=== PATIENT | female | born 1960 | race Native Hawaiian/Other Pacific Islander ===

== ENCOUNTER 2019-10-26 09:51 | Day surgery (SDC) | payer OTHER ==
[~2019-10-26] VITALS: Ht 165.1 cm; Wt 83.1 kg
[~2019-10-26 09:51] MED LIST: ATOR40TA; Cipro250 MG PO; FERR325 PO; LISHYD2025 PO; METO25ER PO; PROAIR RESPICL90 MCG; Papaya1 EAC1
--- NOTE | 2019-10-26 13:48 | NUR ---
10/26/19 1348 April Avery LATE ENTRY-----DURING PROCEDURE PATIENT HAD 3 DIFFERENT EPISODES OF O2 DESATURATION AND AIRWAY OBSTRUCTION. THIS REQUIRED JAW THRUST EACH TIME. AFTER FIRST EPISODE I PLACED #9 OPA AND PATIENT WAS OK FOR A FEW MINUTES THAN STARTED TO COUGH, SUCTIONED MUCUOUS, COPIOUS AMOUNTS OF CLEAR FLUID . ZOFRAN WAS GIVEN PER MD IN ORDER TO KEEP HER FROM VOMITING AND ROBINAL WAS GIVEN TO HELP DRY UP SECRETIONS. DR BENSON CAME IN AND ASSESSED THE SITUATION. CONTINUED JAW THRUST WAS NEEDED AND SWITCHED FROM NASAL CANNULA TO NON REBREATHER WITH O2 @ 10L. AFTER PROCEDURE WAS FINISHED PATIENT WAS ALLOWED TO WAKE UP BEFORE I TOOK THE NONREBREATHER MASK OFF. SHE WAS THEN ON ROOM AIR FOR ABOUT 5 MINUTES AND SHE WAS ABLE TO MAINTAIN O2 SATURATION OF 97%. I DISCUSSED THIS WITH DR JOHNSTON AND ADVISED THAT THIS PATIENT BE REFERRED TO PCP TO DISCUSS TESTING FOR JAYLIN. PATIENT STABLE UPON MOVING TO STEPDOWN
== END 2019-10-26 12:25 | disposition home or self-care (01) ==
LOC: ORSCSDS 09:51
PROVIDERS: Surgery
PROC: 0DBN8ZX Excision of Sigmoid Colon, Via Natural or Artificial Opening Endoscopic, Diagnostic (ICD-10-PCS; principal; 2019-10-26 11:00)
DX: K62.5 Hemorrhage of anus and rectum (principal); R10.32 Left lower quadrant pain; Z86.010 Personal history of colon polyps; D12.5 Benign neoplasm of sigmoid colon; I10 Essential (primary) hypertension; Z87.891 Personal history of nicotine dependence; Z79.899 Other long term (current) drug therapy
CPT/HCPCS: J2405; J2704; J7120

== ENCOUNTER → 2020-01-04 | Outpatient (CLI) | payer OTHER ==
[2020-01-04 09:52] LABS: Source, Urine Voided
[2020-01-04 13:32] LABS: Bilirubin, Urine Neg (Neg); Blood, Urine Neg (Neg); Glucose Qualitative, Urine Neg (Neg); Ketones, Urine Neg (Neg); Leukocyte Esterase, Urine Neg (Neg); Nitrite, Urine Pos (Neg); Protein, Urine Neg (Neg); Specific Gravity, Urine 1.015 (1.003-1.022); Urobilinogen, Urine NORM (Normal); pH, Urine 6.5 (5.0-8.0)
[2020-01-04 13:55] LABS: Appearance, Urine Clear (Clear); Color, Urine Pale Yellow (P-Yellow)
[2020-01-04 13:56] LABS: Bacteria Many /hpf; Red Blood Cells, Urine 0-2 /hpf (0-2); Squamous Epithelial Cells Few /hpf (Few)
[2020-01-04 14:25] LABS: Microalb/Creat Ratio UR, Rand 16.887 mg/g (0.000-30.000); Microalbumin, Random Urine 17.9 mg/L (0.000-20.000)
== END | disposition home or self-care (01) ==
LOC: LAB 09:00 → LAB SHORT 09:00 → LAB FUT 12-31 15:00 → EDSTATUS 12-31 15:00
PROVIDERS: Student in an Organized Health Care Education/Training Program
DX: N18.3 Chronic kidney disease, stage 3 (moderate) (principal)
CPT/HCPCS: 81001; 82043; 82570; 87077; 87086; 87186

== ENCOUNTER 2020-11-21 21:37 | Emergency (ER) | payer OTHER ==
[~2020-11-21] VITALS: Ht 165.1 cm; Wt 83.9 kg
[2020-11-22] MEDS ORDERED: PRED20 PO (00:43)
[2020-11-22] MEDS ORDERED: AMOCLA875 PO (00:43)
[2020-11-22] MEDS ORDERED: TRAM50 PO (00:43)
== END 2020-11-22 01:02 | disposition home or self-care (01) ==
LOC: ER 21:37
DX: K08.89 Other specified disorders of teeth and supporting structures (principal); I10 Essential (primary) hypertension; F17.200 Nicotine dependence, unspecified, uncomplicated; Z79.899 Other long term (current) drug therapy
CPT/HCPCS: 99282; A9270

== ENCOUNTER → 2021-04-25 | Outpatient (CLI) | payer OTHER ==
[~2021-04-25] MED LIST changes: +AMOCLA875 PO; +PRED20 PO; +TRAM50 PO
[2021-04-30 15:11] LABS: COTININE Negative ng/mL (Cutoff=300)
== END | disposition home or self-care (01) ==
LOC: LAB SHORT 10:40 → LAB 10:40
PROVIDERS: Internal Medicine Cardiovascular Disease
DX: I25.10 Atherosclerotic heart disease of native coronary artery without angina pectoris (principal); I10 Essential (primary) hypertension; Z72.0 Tobacco use

== ENCOUNTER 2021-06-03 06:08 | Inpatient (IN) | payer OTHER ==
[~2021-06-03] VITALS: Ht 165.1 cm; Wt 90.3 kg
[~2021-06-03 06:08] MED LIST changes: -LISHYD2025 PO; +ZESTORETIC 20-1 EAC3 PO
--- NOTE | 2021-06-03 15:19 | NUR ---
PT BROUGHT TO PCU ROOM. REPORT OF PROCEDURE REVIEWED WITH ALTAF RN PCU. TR BAND HAS BEEN FULLY DEFLATED FOR 40 MINUTES. R RADIAL SITE STABLE. MO FURTHER QUESTIONS.
--- NOTE | 2021-06-03 17:54 | NUR ---
PT ARRIVED IN THE UNIT VIA WHEELCHAIR [facility] POST [facility] WITH RIGHT RADIAL SITE TR BAND IN PLACE FULLY DEFLATED. SITE INTACT NO HEMATOMA NOTED AROUND THE SITE. PT HAD 3 STENTS PLACED TODAY 2 IN THE CIRC AND 1 IN THE OM. PT ALERT AND ORIENTED, CAN BE INDEPENDENT IN THE ROOM. VITALS SR 70'S, BP SYSTOLIC 140'S, SATS ABOVE 95% ON RA, AFEBRILE. PT DENIES CEHST PAIN OR ANY PAIN, TO DISCHARGE IN AM IF STABLE. PT IN BED RESTING AT THIS TIME. NO OTHER ISSUES AT THIS TIME WILL REPORT TO ONCOMING SHIFT
[2021-06-04 06:11] LABS: BASOPHILS ABSOLUTE AUTO 0.03 K/mm3 (0.00-0.23); BASOPHILS PERCENT AUTO 0 % (0-2); EOSINOPHILS ABSOLUTE AUTO 0.24 K/mm3 (0.00-0.68); EOSINOPHILS PERCENT AUTO 4 % (0-6); Hematocrit 41.8 % (33.0-51.0); IMMATURE GRAN ABSOLUTE AUTO 0.02 K/mm3 (0.00-0.10); IMMATURE GRAN PERCENT AUTO 0 % (0-1); LYMPHOCYTES ABSOLUTE AUTO 2.11 K/mm3 (0.84-5.20); LYMPHOCYTES PERCENT AUTO 31 % (21-46); MONOCYTES ABSOLUTE AUTO 0.49 K/mm3 (0.16-1.47); MONOCYTES PERCENT AUTO 7 % (4-13); Mean Corpuscular HGB Conc 33.5 g/dL (31.5-36.5); Mean Corpuscular Volume 95 fL (80-100); Mean Platelet Volume 10.2 fL (9.1-12.4); NEUTROPHILS ABSOLUTE AUTO 3.97 K/mm3 (1.96-9.15); NEUTROPHILS PERCENT AUTO 58 % (41-73); Platelet Count 207 K/mm3 (150-400); RDW Coefficient Variation 13.1 % (11.7-14.2); RDW Standard Deviation 45.6 fL (35.1-46.3); Red Blood Cell Count 4.38 M/mm3 (3.80-5.20); White Blood Cell Count 6.86 K/mm3 (4.00-11.30)
[2021-06-04 06:27] LABS: Bun/Creatinine Ratio 18.1 (12.0-20.0); Calcium, Blood 8.9 mg/dL (8.5-10.1); Creatinine, Blood 1.16 mg/dL (0.40-1.00); Potassium, Blood 3.8 mmol/L (3.5-5.5)
--- NOTE | 2021-06-04 06:32 | NUR ---
SHIFT SUMMARY PATIENT A&0X4 AND COMPLIANT WITH CARE. VSS. NO CP OR DISTRESS UPON ASSESSMENT. RIGHT RADIAL SITE C/D/I WITH NO SIGNS OF BLEEDING OR HEMATOMA. ARMBOARD IN PLACE. TOLERATING DIET WITHOUT ISSUE. VOIDING WELL IN BATHROOM IND. NO ACUTE CONCERNS AT THIS TIME. WILL CONTINUE TO MONITOR UNTIL REPROT GIVEN TO DAYSHIFT RN.
[2021-06-04] MEDS ORDERED: Aspir 8181 MG PO (09:49)
[2021-06-04] MEDS ORDERED: CLOP75 PO (09:50)
--- NOTE | 2021-06-04 10:44 | NUR ---
PT DISCHARGED TO HOME WITH DISCHARGE ORDERS, DISCHARGE INSTRUCTIONS AND MEDICATIONS DISCLOSED WITH THE PT, PT VERBALIZED UNDERSTANDING. RADIAL SITE CDI WITH TRANSPARENT DRESSING, SITE CARE INSTRUCTION PROVIDED. VITALS HAS BEEN STABLE THROUGHOUT THE NIGHT, PT STARTED ON PLAVIX AND ASPIRIN. DENIES ANY CHEST PAIN/PRESSURE. ACCOMPANIED VIA WHEELCHAIR FOR TRANSPORT, ALL BELONGINGS SENT WITH THE PT.
== END 2021-06-04 10:39 | disposition home or self-care (01) | DRG 247 ==
LOC: MHTC 06:08 → PCU 10:37 → MHTC 10:37 → PCU 15:16
PROVIDERS: Internal Medicine Cardiovascular Disease; ADMIT Internal Medicine Cardiovascular Disease
PROC: B2111ZZ Fluoroscopy of Multiple Coronary Arteries using Low Osmolar Contrast (ICD-10-PCS; principal; 2021-06-03)
PROC: 027136Z Dilation of Coronary Artery, Two Arteries with Three Drug-eluting Intraluminal Devices, Percutaneous Approach (ICD-10-PCS; 2021-06-03)
DX: I25.10 Atherosclerotic heart disease of native coronary artery without angina pectoris (principal); I10 Essential (primary) hypertension; F17.200 Nicotine dependence, unspecified, uncomplicated; E78.5 Hyperlipidemia, unspecified; G47.30 Sleep apnea, unspecified; Z98.890 Other specified postprocedural states; Z79.899 Other long term (current) drug therapy
CPT/HCPCS: 36415; 76937; 80048; 85025; 85347; 93454; 94762; 99152; 99153; A9270; C1725; C1769; C1874; C1887; C1894; C9600; C9601; J1644; J2250; J2370; J3010; J7030; J7050; Q9967

== ENCOUNTER 2021-07-24 07:48 | Day surgery (SDC) | payer OTHER ==
[~2021-07-24] VITALS: Ht 165.1 cm; Wt 92.7 kg
[~2021-07-24 07:48] MED LIST changes: -ATOR40TA; +ATOR40TA PO; +Aspir 8181 MG PO; +CLOP75 PO
[2021-07-24] MEDS ORDERED: HYDCHL25 PO (08:11)
[2021-07-24] MEDS ORDERED: LISI20 PO (08:11)
[2021-07-24] MEDS ORDERED: THERA-D2000 UNIT PO (08:12)
[2021-07-24] MEDS ORDERED: Neurontin 100100 MG PO (08:14)
--- NOTE | 2021-07-24 12:42 | NUR ---
TR BAND DEFLATION STARTED ON RIGHT WRIST. ARM BOARD REMAINS ON FOR SUPPORT. PT PROVIDED WITH LUNCH TRAY , TOLERATES WITH NO DIFFICULTIES.
--- NOTE | 2021-07-24 12:57 | NUR ---
TR BAND FULLY DEFLATED, SITE APPEARS SOFT NON TENDER, NO BLEEDING. WILL CONTINUE TO MONITOR. DISCHARGE INSTRUCTIONS REVIEWED, VERBAL UNDERSTANDING.
--- NOTE | 2021-07-24 13:16 | NUR ---
PT AMBULATES TO RESTROOM WITH SLOW STEADY GAIT. ARRIVES TO BEDSIDE FOR RIDE HOME, PAPERWORK PROVIDED IN FOLDER WITH DISCHARGE INSTRUCTIONS. TR BAND REMOVED FROM RIGHT WRIST, RED CLOTH DOT DRESSING APPLIED. ARM BOARD AND SLING PLACED TO RIGHT ARM FOR SUPPORT. IV REMOVED FROM LAC WITH CATH INTACT, PRESSURE DRESSING APPLIED. PT GETS DRESSED WITH ASSISTANCE FROM . NO DISTRESS NOTED AT TIME OF DISPO. ENCOURAGED TO FOLLOW UP SCHEDULED WITH PROVIDER.
== END 2021-07-24 13:15 | disposition home or self-care (01) ==
LOC: MHTC 07:48
DX: I25.10 Atherosclerotic heart disease of native coronary artery without angina pectoris (principal); I10 Essential (primary) hypertension; E78.5 Hyperlipidemia, unspecified; G47.30 Sleep apnea, unspecified; E66.01 Morbid (severe) obesity due to excess calories; Z68.33 Body mass index [BMI] 33.0-33.9, adult; Z85.41 Personal history of malignant neoplasm of cervix uteri; Z95.5 Presence of coronary angioplasty implant and graft
CPT/HCPCS: 76937; 85347; 93454; 93571; 99152; 99153; C1769; C1887; C1894; J1644; J2250; J3010; J7030; J7050; Q9967

== ENCOUNTER → 2023-01-09 | Outpatient (CLI) | payer OTHER ==
[~2023-01-09] MED LIST changes: +HYDCHL25 PO; +LISI20 PO; +Neurontin 100100 MG PO; +THERA-D2000 UNIT PO
[2023-01-09 12:52] LABS: BASOPHILS ABSOLUTE AUTO 0.06 K/mm3 (0.00-0.23); BASOPHILS PERCENT AUTO 0 % (0-2); EOSINOPHILS ABSOLUTE AUTO 0.14 K/mm3 (0.00-0.68); EOSINOPHILS PERCENT AUTO 1 % (0-6); Hematocrit 52.2 % (33.0-51.0); Hemoglobin 18.4 g/dL (11.5-16.0); IMMATURE GRAN ABSOLUTE AUTO 0.04 K/mm3 (0.00-0.10); IMMATURE GRAN PERCENT AUTO 0 % (0-1); LYMPHOCYTES ABSOLUTE AUTO 3.16 K/mm3 (0.84-5.20); LYMPHOCYTES PERCENT AUTO 23 % (21-46); MONOCYTES ABSOLUTE AUTO 1.12 K/mm3 (0.16-1.47); MONOCYTES PERCENT AUTO 8 % (4-13); Mean Corpuscular HGB 31.9 pg (26.0-34.0); Mean Corpuscular HGB Conc 35.2 g/dL (31.5-36.5); Mean Corpuscular Volume 91 fL (80-100); Mean Platelet Volume 11.1 fL (9.1-12.4); NEUTROPHILS ABSOLUTE AUTO 8.96 K/mm3 (1.96-9.15); NEUTROPHILS PERCENT AUTO 67 % (41-73); Platelet Count 263 K/mm3 (150-400); RDW Coefficient Variation 13.5 % (11.7-14.2); Red Blood Cell Count 5.77 M/mm3 (3.80-5.20); White Blood Cell Count 13.48 K/mm3 (4.00-11.30)
[2023-01-09 13:03] LABS: Albumin, Blood 4.7 g/dL (3.4-5.0); Albumin/Globulin Ratio 1.3 (0.8-1.8); Bun/Creatinine Ratio 15.5 (12.0-20.0); Creatinine, Blood 2.07 mg/dL (0.40-1.00); Globulin, Blood 3.6 g/dL (2.2-4.0); Potassium, Blood 3.5 mmol/L (3.5-5.5); Total Protein, Blood 8.3 g/dL (6.4-8.2)
== END | disposition home or self-care (01) ==
LOC: LAB SHORT 12:48
PROVIDERS: Physician Assistant Medical
DX: R53.83 Other fatigue (principal)
CPT/HCPCS: 80053; 83690; 85025

== ENCOUNTER 2024-10-19 06:35 | Day surgery (SDC) | payer OTHER ==
[~2024-10-19] VITALS: Ht 165.1 cm; Wt 99.8 kg
[2024-10-19] MEDS ORDERED: AMLO5 (07:01)
[2024-10-19] MEDS ORDERED: [UNRECOGNIZED DRUG - OTHER] (07:02)
[2024-10-19] MEDS ORDERED: ASPI81CH (07:02)
[2024-10-19] MEDS ORDERED: LYRICA200 M1 (07:03)
[2024-10-19] MEDS ORDERED: MONT10T (07:03)
[2024-10-19] MEDS ORDERED: K-Dur20 MEQ (07:03)
[2024-10-19] MEDS ORDERED: Lactated Ringer's 1,000 ML IV ONE ×2 (07:34→07:46)
[2024-10-19] MEDS ORDERED: propofoL 50 ML IV ONE (07:37)
[2024-10-19 09:11] VITALS: BP 99/78
== END 2024-10-19 09:19 | disposition home or self-care (01) ==
LOC: ORSCSDS 06:35
PROVIDERS: Surgery
PROC: 0DBE8ZX Excision of Large Intestine, Via Natural or Artificial Opening Endoscopic, Diagnostic (ICD-10-PCS; principal; 2024-10-19 08:00)
PROC: 0DBP8ZX Excision of Rectum, Via Natural or Artificial Opening Endoscopic, Diagnostic (ICD-10-PCS; principal; 2024-10-19 08:00)
PROC: 0DBN8ZX Excision of Sigmoid Colon, Via Natural or Artificial Opening Endoscopic, Diagnostic (ICD-10-PCS; principal; 2024-10-19 08:00)
PROC: 0DBM8ZX Excision of Descending Colon, Via Natural or Artificial Opening Endoscopic, Diagnostic (ICD-10-PCS; principal; 2024-10-19 08:00)
PROC: 0DBL8ZX Excision of Transverse Colon, Via Natural or Artificial Opening Endoscopic, Diagnostic (ICD-10-PCS; principal; 2024-10-19 08:00)
DX: K62.5 Hemorrhage of anus and rectum (principal); Z86.0100 Personal history of colon polyps, unspecified; K63.89 Other specified diseases of intestine; K63.5 Polyp of colon; K62.1 Rectal polyp; K64.4 Residual hemorrhoidal skin tags; K64.1 Second degree hemorrhoids; I12.9 Hypertensive chronic kidney disease with stage 1 through stage 4 chronic kidney disease, or unspecified chronic kidney disease; N18.9 Chronic kidney disease, unspecified; I25.10 Atherosclerotic heart disease of native coronary artery without angina pectoris; J44.9 Chronic obstructive pulmonary disease, unspecified; G47.33 Obstructive sleep apnea (adult) (pediatric); I25.2 Old myocardial infarction; E66.9 Obesity, unspecified; Z68.36 Body mass index [BMI] 36.0-36.9, adult; Z79.899 Other long term (current) drug therapy
CPT/HCPCS: 88305; J2704; J7120